=== PATIENT | female | born 1985 | race Caucasian/White ===

== ENCOUNTER 2023-12-20 19:05 | Inpatient (IN) | payer BC ==
[~2023-12-20] VITALS: Ht 175.3 cm; Wt 55.8 kg
[2023-12-21 04:10] LABS: Basophils # (auto) 0.2 10 ^3/uL (0-0.2); Basophils % (auto) 1.6 % (0.0-2.0); Eosinophils # (auto) 0.1 10 ^3/uL (0-0.8); Eosinophils % (auto) 1.3 % (0.0-7.0); Hematocrit 32.2 % (36.0-46.0); Hemoglobin 10.5 g/dL (12.2-16.2); Lymphocytes # (auto) 1.8 10 ^3/uL (0.4-5.4); Lymphocytes % (auto) 17.9 % (10.0-50.0); Mean Corpuscular Hemoglobin 26.3 pg (28.0-32.0); Mean Corpuscular Hgb Conc. 32.8 g/dL (32.0-36.0); Mean Corpuscular Volume 80.3 fL (80.0-100.0); Monocytes # (auto) 0.4 10 ^3/uL (0-1.3); Monocytes % (auto) 4.4 % (0.0-12.0); Neutrophils # (auto) 7.6 10 ^3/uL (1.6-8.6); Neutrophils % (auto) 74.8 % (37.0-80.0); Nucleated Red Blood Cells % 0.2 %; Red Blood Cells 4.01 10^6/uL (4.0-5.20); Red Cell Distribution Width 14.4 % (11.8-14.3); White Blood Cell 10.2 10^3/uL (4.4-10.8)
[2023-12-21 04:28] LABS: Alanine Aminotransferase 41 U/L (7-40); Albumin 4.7 g/dL (3.2-4.8); Alkaline Phosphatase 101 U/L (46-116); Anion Gap 10 (5-15); Aspartate Aminotransferase 9 U/L (13-40); BUN/Creatinine Ratio 31.2 (10.0-20.0); Blood Urea Nitrogen 24 mg/dL (9-23); Calcium 9.9 mg/dL (8.7-10.4); Carbon Dioxide 21 mmol/L (20-30); Chloride 108 mmol/L (98-107); Glucose 114 mg/dL (74-106); Lipase 45 U/L (12-53); Potassium 3.1 mmol/L (3.5-5.1); Sodium 139 mmol/L (136-145)
[2023-12-21 04:29] LABS: Bilirubin, Total 0.4 mg/dL (0.2-1.0); Total Protein 7.4 g/dL (5.7-8.2)
[2023-12-21] MEDS ORDERED: POTASSIUM CHL 20 Meq TABLET PO ONE (06:00)
[2023-12-21] MEDS: cefTRIAXone 1GM/50ML D5W 50 ML IV ONE (06:40)
[2023-12-21] MEDS: SODIUM CHLORIDE 0.9% 1,000 ML IV ONE (06:40)
[2023-12-21] MEDS: MORPHINE SULFATE 4 MG/ML SYR/VIAL IV ONE (06:42)
[2023-12-21] MEDS ORDERED: DOCUSATE SOD 100 MG CAP PO PRN (06:45)
[2023-12-21] MEDS ORDERED: HYDROcodone-ACET 5/325MG TAB PO PRN (06:45)
[2023-12-21] MEDS ORDERED: NITROGLYCERIN 0.4 MG SL TAB SL PRN (06:45)
[2023-12-21] MEDS ORDERED: ACETAMINOPHEN 325 MG TAB PO PRN (06:45)
[2023-12-21] MEDS ORDERED: MORPHINE SULFATE INJ 2 MG/ml SYRG IV PRN (06:45)
[2023-12-21] MEDS: LORazepam 2MG/ML-1ML VIAL IV ONE (07:32)
[2023-12-21] MEDS: ONDANSETRON HCL 4 MG/2 ML VIAL IV ONE (07:32)
[2023-12-21] MEDS: POTASSIUM CHL 20MEQ/100ML 100 ML IV ONE (07:33)
[2023-12-21] MEDS: PANTOPRAZOLE 40 MG/10 ML VIAL INJ IV SCH (10:48)
[2023-12-21] MEDS: MORPHINE SULFATE INJ 2 MG/ml SYRG IV PRN (10:49)
[2023-12-21] MEDS: SODIUM CHLORIDE 0.9% 1,000 ML IV SCH (10:57)
[2023-12-21 13:00] VITALS: BP 92/63; PULSE 78; RESP 16; TEMP 97.8; O2SAT 98
[2023-12-21 17:00] VITALS: BP 96/57; PULSE 79; RESP 14; TEMP 98; O2SAT 98
[2023-12-21] MEDS ORDERED: CLINIMIX PER PHARMACY 0 ML IV SCH (18:45)
[2023-12-21 20:00] VITALS: PULSE 72; O2SAT 100
[2023-12-21] MEDS: AMINO ACID INFUSION IN D10W 1,000 ML IV SCH (20:00)
[2023-12-21] MEDS ORDERED: DEXTROSE (50%) 50ML SYRG IV SCH (20:00)
[2023-12-21 22:00] VITALS: BP 136/73; PULSE 72; RESP 18; TEMP 98.2; O2SAT 100
[2023-12-21] MEDS: ONDANSETRON HCL 4 MG/2 ML VIAL IV PRN (22:56)
[2023-12-22] MEDS: ACCU-CHEK COMFORT CURVE STRIP VI SCH
[2023-12-22] MEDS: InsuLIN REG 1unit/0.01ml Soln (100units/ml) SC SCH
[2023-12-22 01:00] VITALS: BP 121/81; PULSE 95; RESP 18; TEMP 98.2; O2SAT 100
[2023-12-22 05:00] VITALS: BP 131/61; PULSE 74; RESP 17; TEMP 98.5; O2SAT 99
[2023-12-22 06:02] LABS: Basophils # (auto) 0 10 ^3/uL (0-0.2); Basophils % (auto) 0.6 % (0.0-2.0); Eosinophils # (auto) 0.5 10 ^3/uL (0-0.8); Eosinophils % (auto) 8.6 % (0.0-7.0); Hematocrit 27.2 % (36.0-46.0); Lymphocytes # (auto) 2.1 10 ^3/uL (0.4-5.4); Lymphocytes % (auto) 39.4 % (10.0-50.0); Mean Corpuscular Hgb Conc. 33.1 g/dL (32.0-36.0); Mean Corpuscular Volume 81.6 fL (80.0-100.0); Monocytes # (auto) 0.3 10 ^3/uL (0-1.3); Monocytes % (auto) 5.3 % (0.0-12.0); Neutrophils # (auto) 2.5 10 ^3/uL (1.6-8.6); Neutrophils % (auto) 46.1 % (37.0-80.0); Red Blood Cells 3.33 10^6/uL (4.0-5.20); Red Cell Distribution Width 14.4 % (11.8-14.3); White Blood Cell 5.4 10^3/uL (4.4-10.8)
[2023-12-22 06:15] LABS: Alanine Aminotransferase 26 U/L (7-40); Albumin 3.7 g/dL (3.2-4.8); Alkaline Phosphatase 77 U/L (46-116); Anion Gap 5 (5-15); Aspartate Aminotransferase < 8 U/L (13-40); BUN/Creatinine Ratio 19.7 (10.0-20.0); Bilirubin, Total 0.3 mg/dL (0.2-1.0); Blood Urea Nitrogen 14 mg/dL (9-23); Calcium 8.8 mg/dL (8.7-10.4); Carbon Dioxide 25 mmol/L (20-30); Chloride 111 mmol/L (98-107); Glucose 101 mg/dL (74-106); Magnesium 1.9 mg/dL (1.6-2.6); Phosphorus 3.2 mg/dL (2.4-5.1); Potassium 3.6 mmol/L (3.5-5.1); Sodium 141 mmol/L (136-145); Total Protein 5.7 g/dL (5.7-8.2)
[2023-12-22] MEDS: cefTRIAXone 1GM/50ML D5W 50 ML IV SCH (09:19)
[2023-12-22 10:02] VITALS: BP 132/75; PULSE 64; RESP 16; TEMP 97.9; O2SAT 100
[2023-12-22] MEDS: METOCLOPRAMIDE HCL 5MG/ml INJ 2ml VIAL IV SCH (14:00)
[2023-12-22 15:23] VITALS: BP 131/66; PULSE 65; RESP 17; TEMP 97.5; O2SAT 99
[2023-12-22 17:01] VITALS: BP 130/65; PULSE 73; RESP 17; TEMP 97.4; O2SAT 99
[2023-12-22 21:00] VITALS: BP 138/65; PULSE 69; RESP 18; TEMP 98.4; O2SAT 99
[2023-12-23 05:00] VITALS: BP 135/75; PULSE 57; RESP 19; TEMP 98.2; O2SAT 99
[2023-12-23 06:39] LABS: Potassium 3.5 mmol/L (3.5-5.1)
[2023-12-23 06:40] LABS: Calcium 8.7 mg/dL (8.5-10.1)
[2023-12-23 06:46] LABS: Albumin 3.8 g/dL (3.2-4.8); Magnesium 1.9 mg/dL (1.6-2.6)
[2023-12-23 06:47] LABS: Phosphorus 3.1 mg/dL (2.4-5.1)
[2023-12-23 13:00] VITALS: BP 141/74; PULSE 65; RESP 17; TEMP 98.2; O2SAT 99
[2023-12-23] MEDS: POTASSIUM CHL 20MEQ/100ML 100 ML IV ONE (15:28)
[2023-12-23 17:41] VITALS: BP 129/72; PULSE 66; RESP 17; TEMP 98.2; O2SAT 100
[2023-12-23 18:17] LABS: Urine Bacteria None Seen /hpf (None Seen)
[2023-12-23 18:25] LABS: Urine Blood Negative /uL (Negative); Urine Clarity Clear (Clear); Urine Color Light-Yellow (Yellow); Urine Protein, UAD Negative (Negative); Urine Specific Gravity 1.011 (1.001-1.035); Urine Urobilinogen Normal (Negative); Urine WBC 2 /hpf (0 - 5)
[2023-12-23 21:00] VITALS: BP 136/72; PULSE 65; RESP 18; TEMP 98.4; O2SAT 100
[2023-12-23] MEDS: LORazepam 2MG/ML-1ML VIAL IV PRN (21:11)
[2023-12-24 01:00] VITALS: BP 127/76; PULSE 98; RESP 18; TEMP 98.3; O2SAT 99
[2023-12-24 05:00] VITALS: BP 125/79; PULSE 68; RESP 17; TEMP 98.6; O2SAT 99
[2023-12-24 09:00] VITALS: BP 140/74; PULSE 65; RESP 20; TEMP 97.9; O2SAT 100
[2023-12-24 10:12] LABS: Alanine Aminotransferase 21 U/L (7-40); Albumin 3.7 g/dL (3.2-4.8); Alkaline Phosphatase 78 U/L (46-116); Anion Gap 6 (5-15); Aspartate Aminotransferase < 8 U/L (13-40); BUN/Creatinine Ratio 18.5 (10.0-20.0); Bilirubin, Total 0.2 mg/dL (0.2-1.0); Blood Urea Nitrogen 12 mg/dL (9-23); Carbon Dioxide 24 mmol/L (20-30); Chloride 110 mmol/L (98-107); Glucose 94 mg/dL (74-106); Magnesium 1.7 mg/dL (1.6-2.6); Phosphorus 2.8 mg/dL (2.4-5.1); Potassium 3.7 mmol/L (3.5-5.1); Sodium 140 mmol/L (136-145); Total Protein 5.6 g/dL (5.7-8.2)
[2023-12-24 13:38] VITALS: BP 128/74; PULSE 91; RESP 20; TEMP 98.3; O2SAT 100
[2023-12-24 15:25] VITALS: BP 115/74; PULSE 78; RESP 16
== END 2023-12-24 16:10 | disposition home or self-care (01) | DRG 394 ==
LOC: ER 19:05 → OVERFLOW 12-21 06:59 → CENTRAL 12-21 09:00
PROVIDERS: ADMIT Nurse Practitioner Family; ATTEND Internal Medicine
DX: K94.13 Enterostomy malfunction (principal); Q79.60 Ehlers-Danlos syndrome, unspecified; K31.84 Gastroparesis; G89.4 Chronic pain syndrome; Z87.11 Personal history of peptic ulcer disease; Z76.5 Malingerer [conscious simulation]; Z79.899 Other long term (current) drug therapy; Z87.442 Personal history of urinary calculi; Y84.8 Other medical procedures as the cause of abnormal reaction of the patient, or of later complication, without mention of misadventure at the time of the procedure; Y92.89 Other specified places as the place of occurrence of the external cause
CPT/HCPCS: 36415; 74176; 80053; 80069; 81001; 82962; 83690; 83735; 84100; 84702; 85025; 87081; C9113; G0378; J2405; J3480

== ENCOUNTER 2024-04-18 18:27 | Inpatient (IN) | payer BC ==
[~2024-04-18] VITALS: Ht 172.7 cm; Wt 59.6 kg
[2024-04-18] MEDS: SODIUM CHLORIDE 0.9% 1,000 ML IV ONE (18:56)
[2024-04-18] MEDS: diphenhdrAMINE HCL 50 MG/1 ML VL IV ONE (18:56)
[2024-04-18 18:57] LABS: Urine Bacteria None Seen /hpf (None Seen)
[2024-04-18 19:25] VITALS: PULSE 103; RESP 18; O2SAT 99
[2024-04-18 19:26] LABS: Basophils # (auto) 0 10 ^3/uL (0-0.2); Basophils % (auto) 1.1 % (0.0-2.0); Eosinophils # (auto) 0.2 10 ^3/uL (0-0.8); Eosinophils % (auto) 5.2 % (0.0-7.0); Hematocrit 32.8 % (36.0-46.0); Hemoglobin 10.9 g/dL (12.2-16.2); Lymphocytes # (auto) 1.4 10 ^3/uL (0.4-5.4); Lymphocytes % (auto) 37.3 % (10.0-50.0); Mean Corpuscular Hemoglobin 27.4 pg (28.0-32.0); Mean Corpuscular Hgb Conc. 33.3 g/dL (32.0-36.0); Mean Corpuscular Volume 82.3 fL (80.0-100.0); Monocytes # (auto) 0.3 10 ^3/uL (0-1.3); Monocytes % (auto) 9.2 % (0.0-12.0); Neutrophils # (auto) 1.7 10 ^3/uL (1.6-8.6); Neutrophils % (auto) 47.2 % (37.0-80.0); Nucleated Red Blood Cells % 0.1 %; Platelet Count (auto) 212 10^3/uL (140-450); Red Blood Cells 3.98 10^6/uL (4.0-5.20); Red Cell Distribution Width 17.3 % (11.8-14.3); White Blood Cell 3.7 10^3/uL (4.4-10.8)
[2024-04-18 19:40] LABS: Urine Amorphous Crystal FEW /hpf (None Seen); Urine Blood Negative /uL (Negative); Urine Clarity Turbid (Clear); Urine Color Light-Yellow (Yellow); Urine Mucus FEW (None Seen); Urine Protein, UAD TRACE (Negative); Urine Specific Gravity 1.019 (1.001-1.035); Urine Urobilinogen Normal (Negative); Urine WBC 10 /hpf (0 - 5)
[2024-04-18 19:45] LABS: Chloride 114 mmol/L (98-107); Potassium 2.9 mmol/L (3.5-5.1); Sodium 145 mmol/L (136-145)
[2024-04-18 19:46] LABS: Anion Gap 9 (5-15); Calcium 9.5 mg/dL (8.7-10.4); Carbon Dioxide 22 mmol/L (20-31)
[2024-04-18 19:51] LABS: BUN/Creatinine Ratio 13.5 (10.0-20.0); Blood Urea Nitrogen 13 mg/dL (9-23); Glucose 104 mg/dL (74-106)
[2024-04-18] MEDS: MORPHINE SULFATE 4 MG/ML SYR/VIAL IV ONE (20:16)
[2024-04-18] MEDS ORDERED: ONDANSETRON HCL 4 MG/2 ML VIAL IV PRN (22:30)
[2024-04-18] MEDS ORDERED: NITROGLYCERIN 0.4 MG SL TAB SL PRN ×2 (22:30→23:30)
[2024-04-18] MEDS ORDERED: ACETAMINOPHEN 325 MG TAB PO PRN (22:30)
[2024-04-18] MEDS ORDERED: MORPHINE SULFATE INJ 2 MG/ml SYRG IV PRN ×2 (22:30→23:30)
[2024-04-18] MEDS ORDERED: POTASSIUM CHLORIDE 40 MEQ, LIDOCAINE 1% (LOCAL ANESTH.) 4 ML in SODIUM CHL 0.9% 250 ML IV ONE (22:30)
[2024-04-18] MEDS: cefTRIAXone 1GM/50ML D5W 50 ML IV ONE (22:50)
[2024-04-18] MEDS: LORazepam 2MG/ML-1ML VIAL IV PRN (22:50)
[2024-04-18] MEDS: diphenhdrAMINE HCL 50 MG/1 ML VL IV PRN (23:26)
[2024-04-18] MEDS: POTASSIUM CHL 20MEQ/100ML 100 ML IV ONE (23:26)
[2024-04-19] VITALS (8 sets, daily range): BP systolic 119–136; BP diastolic 81–95; PULSE 77–114; RESP 16–17; TEMP 97.8–98.7; O2SAT 97–99
[2024-04-19] MEDS: MORPHINE SULFATE INJ 2 MG/ml SYRG IV PRN (00:16)
[2024-04-19] MEDS: POTASSIUM CHL 20MEQ/100ML 100 ML IV ONE ×2 (00:40→12:48)
[2024-04-19] MEDS ORDERED: LORA-1121 PO (04:02)
[2024-04-19] MEDS ORDERED: FENT25DI2 TOP (04:02)
[2024-04-19] MEDS ORDERED: TIZA4TAB9 PO (04:02)
[2024-04-19] MEDS: SODIUM CHLOR 0.9% PF (SALINE LOCK) 10ML VIAL/SYR IV SCH (04:49)
[2024-04-19 07:54] LABS: Basophils # (auto) 0 10 ^3/uL (0-0.2); Basophils % (auto) 0.8 % (0.0-2.0); Eosinophils # (auto) 0.3 10 ^3/uL (0-0.8); Eosinophils % (auto) 6.8 % (0.0-7.0); Hematocrit 33.8 % (36.0-46.0); Hemoglobin 11.1 g/dL (12.2-16.2); Mean Corpuscular Hemoglobin 27.5 pg (28.0-32.0); Mean Corpuscular Hgb Conc. 32.8 g/dL (32.0-36.0); Mean Corpuscular Volume 83.9 fL (80.0-100.0); Monocytes # (auto) 0.3 10 ^3/uL (0-1.3); Monocytes % (auto) 7.5 % (0.0-12.0); Neutrophils # (auto) 1.2 10 ^3/uL (1.6-8.6); Neutrophils % (auto) 31.9 % (37.0-80.0); Nucleated Red Blood Cells % 0.2 %; Platelet Count (auto) 184 10^3/uL (140-450); Red Blood Cells 4.03 10^6/uL (4.0-5.20); White Blood Cell 3.7 10^3/uL (4.4-10.8)
[2024-04-19 08:01] LABS: Alanine Aminotransferase 68 U/L (7-40); Alkaline Phosphatase 90 U/L (46-116); Anion Gap 10 (5-15); Aspartate Aminotransferase 21 U/L (13-40); Blood Urea Nitrogen 8 mg/dL (9-23); Calcium 8.8 mg/dL (8.7-10.4); Carbon Dioxide 20 mmol/L (20-31); Chloride 116 mmol/L (98-107); Glucose 92 mg/dL (74-106); Potassium 3.3 mmol/L (3.5-5.1); Sodium 146 mmol/L (136-145)
[2024-04-19 08:02] LABS: Bilirubin, Total < 0.2 mg/dL (0.2-1.0); Total Protein 6.3 g/dL (5.7-8.2)
[2024-04-19 08:51] LABS: Amphetamine Screen, Urine Neg (NEGATIVE); Barbiturate Scree,Urine Neg (NEGATIVE); Benzodiazephine Screen, Urine Neg (NEGATIVE); Cannabinoid Screen, Urine Pos (NEGATIVE); Cocaine Screen, Urine Neg (NEGATIVE); Opiate Scree,Urine Neg (NEGATIVE); Phencyclidine Screen, Urine Neg (NEGATIVE)
[2024-04-19] MEDS: cefTRIAXone 1GM/50ML D5W 50 ML IV SCH (11:12)
[2024-04-19] MEDS: PANTOPRAZOLE 40 MG/10 ML VIAL INJ IV SCH (11:12)
[2024-04-19] MEDS: diphenhdrAMINE HCL 50 MG/1 ML VL IV PRN (12:47)
[2024-04-19] MEDS ORDERED: TPN PER PHARMACY 0 ML IV SCH (13:00)
[2024-04-19] MEDS ORDERED: DEXTROSE (50%) 50ML SYRG IV SCH (14:00)
[2024-04-19] MEDS: InsuLIN REG 1unit/0.01ml Soln (100units/ml) SC SCH (17:27)
[2024-04-19] MEDS: ACCU-CHEK COMFORT CURVE STRIP VI SCH (17:28)
[2024-04-19] MEDS: AMINO ACID INFUSION IN D10W 1,000 ML IV ONE (21:59)
[2024-04-20 01:00] VITALS: BP 138/93; PULSE 83; RESP 17; TEMP 98.4; O2SAT 97
[2024-04-20 05:00] VITALS: BP 131/86; PULSE 70; RESP 17; TEMP 98; O2SAT 97
[2024-04-20 07:03] LABS: Basophils # (auto) 0 10 ^3/uL (0-0.2); Eosinophils # (auto) 0.3 10 ^3/uL (0-0.8); Eosinophils % (auto) 7.2 % (0.0-7.0); Hemoglobin 10.9 g/dL (12.2-16.2); Mean Corpuscular Hemoglobin 27.5 pg (28.0-32.0); Mean Corpuscular Volume 83.4 fL (80.0-100.0); Monocytes # (auto) 0.4 10 ^3/uL (0-1.3); Monocytes % (auto) 9.2 % (0.0-12.0); Neutrophils # (auto) 1.5 10 ^3/uL (1.6-8.6); Neutrophils % (auto) 35.6 % (37.0-80.0); Nucleated Red Blood Cells % 0.1 %; Platelet Count (auto) 193 10^3/uL (140-450); Red Blood Cells 3.96 10^6/uL (4.0-5.20); Red Cell Distribution Width 16.6 % (11.8-14.3); White Blood Cell 4.2 10^3/uL (4.4-10.8)
[2024-04-20 07:06] LABS: Alanine Aminotransferase 55 U/L (7-40); Alkaline Phosphatase 81 U/L (46-116); Anion Gap 7 (5-15); Aspartate Aminotransferase 14 U/L (13-40); BUN/Creatinine Ratio 9.9 (10.0-20.0); Blood Urea Nitrogen 9 mg/dL (9-23); Calcium 9.2 mg/dL (8.7-10.4); Carbon Dioxide 26 mmol/L (20-31); Chloride 111 mmol/L (98-107); Glucose 85 mg/dL (74-106); Magnesium 2.3 mg/dL (1.6-2.6); Sodium 144 mmol/L (136-145)
[2024-04-20 07:07] LABS: Bilirubin, Total 0.2 mg/dL (0.2-1.0); Total Protein 6.2 g/dL (5.7-8.2)
[2024-04-20 08:42] LABS: Hepatitis B Surface Antigen Negative (Negative)
[2024-04-20 09:00] VITALS: BP 144/89; PULSE 73; RESP 14; TEMP 98.1; O2SAT 96
[2024-04-20 09:03] LABS: Hepatitis C Antibody Negative (Negative)
[2024-04-20 11:14] LABS: Folate (Folic Acid) 15.89 ng/mL (>5.38)
[2024-04-20 13:00] VITALS: BP 129/82; PULSE 78; RESP 16; TEMP 97.8; O2SAT 96
[2024-04-20] MEDS ORDERED: metroNIDAZOLE 500MG/100ML 100 ML IV SCH (14:00)
[2024-04-20 17:00] VITALS: BP 131/91; PULSE 90; RESP 18; TEMP 98.2; O2SAT 96
[2024-04-20 21:00] VITALS: BP 128/88; PULSE 86; RESP 20; TEMP 98.5; O2SAT 98
[2024-04-20] MEDS: TPN PER PHARMACY IV NR (22:15)
[2024-04-21] VITALS (7 sets, daily range): BP systolic 120–140; BP diastolic 85–98; PULSE 77–91; RESP 16–19; TEMP 97.7–98.8; O2SAT 96–99
[2024-04-21] MEDS ORDERED: CEPH500C PO (07:54)
[2024-04-21] MEDS ORDERED: CEFT1INJ6 IJ (08:14)
[2024-04-21 08:16] LABS: Alanine Aminotransferase 54 U/L (7-40); Albumin 3.9 g/dL (3.2-4.8); Alkaline Phosphatase 85 U/L (46-116); Anion Gap 7 (5-15); Aspartate Aminotransferase 15 U/L (13-40); BUN/Creatinine Ratio 19.8 (10.0-20.0); Bilirubin, Total < 0.2 mg/dL (0.2-1.0); Blood Urea Nitrogen 17 mg/dL (9-23); Calcium 8.8 mg/dL (8.7-10.4); Carbon Dioxide 25 mmol/L (20-31); Chloride 112 mmol/L (98-107); Glucose 103 mg/dL (74-106); Magnesium 2.2 mg/dL (1.6-2.6); Phosphorus 3.5 mg/dL (2.4-5.1); Potassium 3.9 mmol/L (3.5-5.1); Sodium 144 mmol/L (136-145); Total Protein 6.1 g/dL (5.7-8.2)
[2024-04-21] MEDS ORDERED: DIP50I IM (16:19)
[2024-04-21] MEDS ORDERED: TPN PER PHARMACY IV NR (22:00)
== END 2024-04-21 17:45 | disposition home health service (06) | DRG 603 ==
LOC: ER 18:27 → OVERFLOW 22:24 → TELE 22:35 → TELE-CENTR 04-19 02:48 → CENTRAL 04-20 01:18 → WEST WING 04-21 12:30
PROVIDERS: ADMIT Internal Medicine; ATTEND Internal Medicine
DX: L03.311 Cellulitis of abdominal wall (principal); K94.13 Enterostomy malfunction; Q79.60 Ehlers-Danlos syndrome, unspecified; N13.6 Pyonephrosis; K52.9 Noninfective gastroenteritis and colitis, unspecified; E87.6 Hypokalemia; K31.84 Gastroparesis; E86.0 Dehydration; G89.4 Chronic pain syndrome; K57.30 Diverticulosis of large intestine without perforation or abscess without bleeding; Z87.11 Personal history of peptic ulcer disease; Z79.891 Long term (current) use of opiate analgesic
CPT/HCPCS: 36415; 74176; 76775; 80048; 80053; 80307; 81001; 81025; 82306; 82607; 82746; 82962; 83036; 83690; 83735; 84100; 84439; 84443; 84478; 84481; 85025; 86803; 87086; 87340; 99291; G0378; J2003; J2470; J3480